=== PATIENT | female | born 1970 | race Caucasian/White ===

== ENCOUNTER 2018-01-28 21:49 | Inpatient (IN) | payer MEDICAID, OTHER ==
[2018-01-29] MEDS: ASPIRIN 325 MG TAB PO (00:38)
[2018-01-29 00:43] LABS: ADD MAN DIFF? NO
[2018-01-29 00:48] LABS: WHITE BLOOD COUNT 7.5 10^3/ul (4.8-10.8)
[2018-01-29 00:48] LABS: BASOPHIL # 0.1 10^3/ul (0.0-0.1); BASOPHILS % 0.7 % (0.0-2.0); EOSINOPHILS # 0.1 10^3/ul (0.0-0.5); EOSINOPHILS % 0.9 % (0.0-7.0); HEMATOCRIT 40.8 % (37.0-47.0); HEMOGLOBIN 13.6 g/dl (12.0-16.0); LYMPHOCYTES # 3.4 10^3/ul (0.8-2.9); LYMPHOCYTES % 44.6 % (15.0-51.0); MEAN CORPUSCULAR HEMOGLOBIN 29.3 pg (29.0-33.0); MEAN CORPUSCULAR HGB CONC 33.3 g/dl (32.0-37.0); MEAN CORPUSCULAR VOLUME 87.9 fl (82.0-101.0); MEAN PLATELET VOLUME 10.3 fl (7.4-10.4); MONOCYTE # 0.6 10^3/ul (0.3-0.9); MONOCYTES % 7.8 % (0.0-11.0); NEUTROPHIL # 3.5 10^3/ul (1.6-7.5); NEUTROPHILS % 45.7 % (39.0-77.0); PLATELET COUNT 255 10^3/UL (140-415); RED BLOOD COUNT 4.64 10^6/ul (4.20-5.40); RED CELL DISTRIBUTION WIDTH 15.7 % (11.5-14.5)
[2018-01-29 01:03] LABS: ANION GAP 13 (8-16); BLOOD UREA NITROGEN 11 mg/dl (7-20); CALCIUM 9.1 mg/dl (8.4-10.2); CARBON DIOXIDE 26 mmol/L (21-31); CHLORIDE 113 mmol/L (97-110); CREATININE 0.73 mg/dl (0.44-1.00); GLUCOSE 114 mg/dl (70-220); POTASSIUM 4.6 mmol/L (3.5-5.1); SODIUM 147 mmol/L (135-144)
[2018-01-29 01:15] LABS: B-TYPE NATRIURETIC PEPTIDE 3420 PG/ML (0-125); TROPONIN-I 0.089 ng/ml (0.000-0.120)
[2018-01-29] MEDS: FUROSEMIDE 40 MG INJ IV ×3 (02:03→17:40)
[2018-01-29] MEDS ORDERED: NACL 0.9% 3 ML SYG IV (02:30)
[2018-01-29] MEDS ORDERED: DOCUSATE SODIUM 100 MG CAP PO (02:30)
[2018-01-29] MEDS ORDERED: NITROGLYCERIN (SL) 0.4 MG TAB SL (02:30)
[2018-01-29] MEDS ORDERED: ACETAMINOPHEN 325 MG TAB PO (02:30)
[2018-01-29] MEDS ORDERED: BISACODYL (EC) 5 MG TAB PO (02:30)
[2018-01-29] MEDS ORDERED: ONDANSETRON 4 MG INJ IV (02:30)
[2018-01-29 03:37] LABS: ADD UMIC YES; UR ASCORBIC ACID NEGATIVE (NEGATIVE); UR BACTERIA FEW /HPF (NONE SEEN); UR BILIRUBIN (Dip) NEGATIVE (NEGATIVE); UR BLOOD (Dip) 1+ mg/dL (NEGATIVE); UR CLARITY SLIGHTLY CLOUDY (CLEAR); UR COLOR YELLOW (YELLOW); UR GLUCOSE (Dip) NEGATIVE (NEGATIVE); UR KETONES (Dip) NEGATIVE (NEGATIVE); UR LEUKOCYTE ESTERASE (Dip) 1+ Leu/ul (NEGATIVE); UR NITRITE (Dip) NEGATIVE (NEGATIVE); UR RBC 2 /HPF (0-5); UR SPECIFIC GRAVITY (Dip) 1.008 (1.003-1.030); UR SQUAMOUS EPITHELIAL CELL FEW /HPF (FEW); UR TOTAL PROTEIN (Dip) NEGATIVE (NEGATIVE); UR UROBILINOGEN (Dip) NEGATIVE (NEGATIVE); UR WBC 7 /HPF (0-5)
[2018-01-29] MEDS: CEFTRIAXONE 1 GM/50 ML (PMX) 50 ML IVPB (04:19)
[2018-01-29] MEDS: LISINOPRIL 5 MG TAB PO ×2 (06:43→08:48)
[2018-01-29 07:33] LABS: HEMOGLOBIN A1C 5.1 % (0-5.9)
[2018-01-29 08:01] LABS: CHOL/HDL RATIO 4.3 RATIO; CREATINE KINASE 105 IU/L (23-200); HDL CHOLESTEROL 33 mg/dl (37-92); LDL CHOLESTEROL,CALCULATED 85 mg/dl; TRIGLYCERIDES 125 mg/dl (0-149)
[2018-01-29 08:01] LABS: CHOLESTEROL 143 mg/dl (100-200)
[2018-01-29 08:02] LABS: ALANINE AMINOTRANSFERASE 65 IU/L (13-69); ALBUMIN 3.4 g/dl (3.3-4.9); ALBUMIN/GLOBULIN RATIO 1.03; ALKALINE PHOSPHATASE 107 IU/L (42-121); ANION GAP 14 (8-16); ASPARTATE AMINO TRANSFERASE 45 IU/L (15-46); BILIRUBIN,INDIRECT 0.8 mg/dl (0-1.1); BILIRUBIN,TOTAL 0.8 mg/dl (0.2-1.3); BLOOD UREA NITROGEN 11 mg/dl (7-20); CARBON DIOXIDE 24 mmol/L (21-31); CHLORIDE 114 mmol/L (97-110); CREATININE 0.66 mg/dl (0.44-1.00); GLUCOSE 100 mg/dl (70-220); POTASSIUM 4.1 mmol/L (3.5-5.1); SODIUM 148 mmol/L (135-144); TOTAL PROTEIN 6.7 g/dl (6.1-8.1)
[2018-01-29 08:03] LABS: MAGNESIUM 1.8 mg/dl (1.7-2.5)
[2018-01-29 08:07] LABS: CK INDEX 2.7; CK-MB 2.83 ng/ml (0.0-2.4); TROPONIN-I 0.082 ng/ml (0.000-0.120)
[2018-01-29] MEDS: ASPIRIN 81 MG TAB PO (08:48)
[2018-01-29] MEDS: ENOXAPARIN 40 MG/0.4 ML SYG SC (08:49)
[2018-01-29 12:54] LABS: CREATINE KINASE 98 IU/L (23-200)
[2018-01-29 13:06] LABS: CK INDEX 1.8; TROPONIN-I 0.071 ng/ml (0.000-0.120)
[2018-01-29] MEDS: DIGOXIN 500 MCG INJ IV (18:26)
[2018-01-30] MEDS: DIGOXIN 500 MCG INJ IV (01:31)
[2018-01-30] MEDS ORDERED: CEFTRIAXONE 1 GM/50 ML (PMX) 50 ML IVPB ×2 (04:00→04:30)
[2018-01-30] MEDS: FUROSEMIDE 40 MG INJ IV ×2 (06:38→17:35)
[2018-01-30 06:46] LABS: ADD MAN DIFF? NO
[2018-01-30 06:49] LABS: WHITE BLOOD COUNT 6.5 10^3/ul (4.8-10.8)
[2018-01-30 06:49] LABS: BASOPHIL # 0.1 10^3/ul (0.0-0.1); BASOPHILS % 0.8 % (0.0-2.0); EOSINOPHILS # 0.3 10^3/ul (0.0-0.5); EOSINOPHILS % 4.2 % (0.0-7.0); HEMATOCRIT 41.1 % (37.0-47.0); HEMOGLOBIN 14.1 g/dl (12.0-16.0); LYMPHOCYTES # 2.6 10^3/ul (0.8-2.9); LYMPHOCYTES % 40.9 % (15.0-51.0); MEAN CORPUSCULAR HEMOGLOBIN 29.6 pg (29.0-33.0); MEAN CORPUSCULAR HGB CONC 34.3 g/dl (32.0-37.0); MEAN CORPUSCULAR VOLUME 86.2 fl (82.0-101.0); MEAN PLATELET VOLUME 10.4 fl (7.4-10.4); MONOCYTE # 0.6 10^3/ul (0.3-0.9); MONOCYTES % 9.6 % (0.0-11.0); NEUTROPHIL # 2.9 10^3/ul (1.6-7.5); NEUTROPHILS % 44.3 % (39.0-77.0); PLATELET COUNT 264 10^3/UL (140-415); RED BLOOD COUNT 4.77 10^6/ul (4.20-5.40); RED CELL DISTRIBUTION WIDTH 14.6 % (11.5-14.5)
[2018-01-30 07:27] LABS: ANION GAP 12 (8-16); BLOOD UREA NITROGEN 15 mg/dl (7-20); CALCIUM 8.8 mg/dl (8.4-10.2); CARBON DIOXIDE 28 mmol/L (21-31); CHLORIDE 109 mmol/L (97-110); CREATININE 0.72 mg/dl (0.44-1.00); GLUCOSE 98 mg/dl (70-220); PHOSPHORUS 4.7 mg/dl (2.5-4.9); SODIUM 145 mmol/L (135-144)
[2018-01-30 07:40] LABS: HDL CHOLESTEROL 37 mg/dl (37-92); LDL CHOLESTEROL,CALCULATED 95 mg/dl; TRIGLYCERIDES 95 mg/dl (0-149)
[2018-01-30 07:40] LABS: CHOLESTEROL 151 mg/dl (100-200)
[2018-01-30] MEDS: ASPIRIN 81 MG TAB PO (08:34)
[2018-01-30] MEDS: LISINOPRIL 5 MG TAB PO (08:35)
[2018-01-30] MEDS: ENOXAPARIN 40 MG/0.4 ML SYG SC (08:41)
[2018-01-31] MEDS: FUROSEMIDE 40 MG INJ IV (06:08)
[2018-01-31 09:27] LABS: ANION GAP 16 (8-16); BLOOD UREA NITROGEN 15 mg/dl (7-20); CALCIUM 9.1 mg/dl (8.4-10.2); CARBON DIOXIDE 28 mmol/L (21-31); CHLORIDE 105 mmol/L (97-110); CREATININE 0.69 mg/dl (0.44-1.00); GLUCOSE 104 mg/dl (70-220); PHOSPHORUS 4.5 mg/dl (2.5-4.9); POTASSIUM 3.8 mmol/L (3.5-5.1); SODIUM 145 mmol/L (135-144)
[2018-01-31] MEDS: REGADENOSON 0.4 MG/5 ML SYG (12:45)
[2018-01-31] MEDS: ASPIRIN 81 MG TAB PO (14:21)
[2018-01-31] MEDS: LISINOPRIL 5 MG TAB PO (14:21)
[2018-01-31] MEDS: SPIRONOLACTONE 25 MG TAB PO (14:21)
[2018-01-31] MEDS: ENOXAPARIN 40 MG/0.4 ML SYG SC (14:26)
[2018-01-31] MEDS: FUROSEMIDE 40 MG TAB PO (18:07)
[2018-02-01] MEDS: FUROSEMIDE 40 MG TAB PO ×2 (05:48→17:30)
[2018-02-01 07:25] LABS: ANION GAP 15 (8-16); BLOOD UREA NITROGEN 21 mg/dl (7-20); CALCIUM 9.1 mg/dl (8.4-10.2); CARBON DIOXIDE 29 mmol/L (21-31); CHLORIDE 104 mmol/L (97-110); CREATININE 0.69 mg/dl (0.44-1.00); GLUCOSE 104 mg/dl (70-220); PHOSPHORUS 4.5 mg/dl (2.5-4.9); POTASSIUM 3.7 mmol/L (3.5-5.1); SODIUM 144 mmol/L (135-144)
[2018-02-01] MEDS: ASPIRIN 81 MG TAB PO (08:16)
[2018-02-01] MEDS: LISINOPRIL 5 MG TAB PO (08:17)
[2018-02-01] MEDS: SPIRONOLACTONE 25 MG TAB PO (08:17)
[2018-02-01] MEDS: ENOXAPARIN 40 MG/0.4 ML SYG SC (08:35)
[2018-02-02] MEDS: FUROSEMIDE 40 MG TAB PO (06:38)
[2018-02-02 07:47] LABS: CALCIUM 9.1 mg/dl (8.4-10.2); CARBON DIOXIDE 27 mmol/L (21-31); CREATININE 0.58 mg/dl (0.44-1.00); GLUCOSE 154 mg/dl (70-220); MAGNESIUM 1.9 mg/dl (1.7-2.5); PHOSPHORUS 3.4 mg/dl (2.5-4.9); POTASSIUM 3.8 mmol/L (3.5-5.1)
[2018-02-02 07:48] LABS: ANION GAP 15 (8-16); CHLORIDE 105 mmol/L (97-110); SODIUM 143 mmol/L (135-144)
[2018-02-02 07:49] LABS: BLOOD UREA NITROGEN 15 mg/dl (7-20)
[2018-02-02] MEDS: LISINOPRIL 5 MG TAB PO (08:35)
[2018-02-02] MEDS: ASPIRIN 81 MG TAB PO (08:40)
[2018-02-02] MEDS: SPIRONOLACTONE 25 MG TAB PO (08:40)
[2018-02-02] MEDS: ENOXAPARIN 40 MG/0.4 ML SYG SC (09:15)
== END 2018-02-02 15:03 | disposition home or self-care (01) | DRG 292 ==
LOC: E/R 21:49 → TEL 01-29 02:13
PROC: 5A09357 Assistance with Respiratory Ventilation, Less than 24 Consecutive Hours, Continuous Positive Airway Pressure (ICD-10-PCS; principal; 2018-01-29)
DX: I11.0 Hypertensive heart disease with heart failure (principal); E87.0 Hyperosmolality and hypernatremia; N39.0 Urinary tract infection, site not specified; I50.23 Acute on chronic systolic (congestive) heart failure; I42.9 Cardiomyopathy, unspecified; F17.210 Nicotine dependence, cigarettes, uncomplicated; F12.10 Cannabis abuse, uncomplicated; Z86.718 Personal history of other venous thrombosis and embolism
CPT/HCPCS: 36415; 71045; 78452; 80048; 80053; 80061; 81001; 81025; 82306; 82550; 82553; 83036; 83735; 83880; 84100; 84443; 84484; 85025; 87086; 93005; 93017; 93306; 93970; 94660; 96365; 96375; 99291-25